=== PATIENT | male | born 1980 | race Two or more races ===

== ENCOUNTER 2020-11-28 21:26 | Emergency (ER) | payer OTHER ==
[~2020-11-28 21:26] MED LIST: ZANTAC150 MG PO
[2020-11-28 23:09] LABS: BASOPHIL 0.6 % (0-2); EOSINOPHIL 2.3 % (0-5); HCT 40.2 % (42.0-52.0); HGB 13.3 g/dl (13.2-18.0); LYMPHOCYTE 27.7 % (15-48); MCH 28.8 pg (25.0-31.0); MCHC 33.1 g/dL (32.0-36.0); MONOCYTE 8.5 % (0-12); MPV 9.8 fL (6.0-9.5); NEUTROPHIL 60.5 % (41-80); NRBC 0; PLT 241 K/uL (150-400); RBC 4.62 M/uL (4.70-6.00); RDW 13.3 % (11.5-14.0); WBC 8.2 K/uL (4.0-10.5)
[2020-11-29 00:45] LABS: ALBUMIN 3.9 g/dL (3.4-5.0); BILIRUBIN - TOTAL 0.7 mg/dL (0.2-1.0); CREATININE 0.9 mg/dL (0.67-1.17); GLOBULIN (CALCULATION) 3.7 g/dL; POTASSIUM 4.1 mmol/L (3.5-5.1); TOTAL PROTEIN 7.6 g/dL (6.4-8.2)
[2020-11-29] MEDS ORDERED: DICLOFENAC SODI75 MG PO (02:25)
== END 2020-11-29 02:47 | disposition home or self-care (01) ==
LOC: FER 21:26
PROVIDERS: Emergency Medicine Emergency Medical Services
DX: R07.89 Other chest pain (principal); E78.5 Hyperlipidemia, unspecified
CPT/HCPCS: 36415; 71045; 80053; 83690; 84484; 85025; 85379; 93005